=== PATIENT | male | born 1975 | race African-American/Black ===

== ENCOUNTER 2017-12-14 01:28 | Inpatient (IN) | payer MEDICAID ==
[~2017-12-14] VITALS: Ht 193 cm; Wt 91.0 kg
[~2017-12-14 01:28] MED LIST: NORPTMEDS CO
[2017-12-14] MEDS ORDERED: SODIUM CHLORIDE 0.9% 1,000 ML IV ONE ×2 (01:45→04:30)
[2017-12-14] MEDS ORDERED: PROMETHAZINE HCL 25 MG/ML 1ML IV ONE (02:00)
[2017-12-14] MEDS ORDERED: ONDANSETRON HCL 4 MG/2 ML VIAL ONE (02:01)
[2017-12-14] MEDS ORDERED: LORazepam 2MG/ML-1ML VIAL ONE (02:08)
[2017-12-14 02:13] LABS: Basophils # (auto) 0 uL; Basophils % (auto) 0.2 % (0.0-2.0); Eosinophils # (auto) 0 uL; Hematocrit 51.3 % (41.0-53.0); Hemoglobin 17.1 g/dL (13.5-17.5); Lymphocytes # (auto) 1.1 uL; Lymphocytes % (auto) 7.3 % (10.0-50.0); Mean Corpuscular Hemoglobin 31.3 pg (28.0-32.0); Mean Corpuscular Hgb Conc. 33.4 g/dL (32.0-36.0); Mean Corpuscular Volume 93.8 fL (80.0-100.0); Monocytes # (auto) 1.2 uL; Monocytes % (auto) 8.3 % (0.0-12.0); Neutrophils # (auto) 12.1 uL; Neutrophils % (auto) 84.2 % (37.0-80.0); Nucleated Red Blood Cells % 0.1 %; Platelet Count (auto) 189 10^3/uL (140-450); Red Blood Cells 5.47 10^6/uL (4.5-5.90); Red Cell Distribution Width 15.2 % (11.8-14.3); White Blood Cell 14.3 10^3/uL (4.4-10.8)
[2017-12-14] MEDS ORDERED: LORazepam 2MG/ML-1ML VIAL IV ONE (02:15)
[2017-12-14] MEDS ORDERED: ONDANSETRON HCL 4 MG/2 ML VIAL IV ONE (02:15)
[2017-12-14] MEDS ORDERED: THIAMINE 100mg/ml INJ (200mg/2ml VIAL) ONE (02:26)
[2017-12-14] MEDS: THIAMINE INJ 100 MG, MULTIPLE VITAMIN 10 ML, FOLIC ACID 1 MG, MAGNESIUM SULF SDV 50% 8 ... IV SCH ×5 (02:33)
[2017-12-14 02:37] LABS: Alanine Aminotransferase 100 U/L (16-61); Albumin 4.5 g/dL (3.4-5.0); Anion Gap 22 (5-15); Aspartate Aminotransferase 86 U/L (15-37); BUN/Creatinine Ratio 4.5; Blood Alcohol < 3.0 mg/dL (0-5); Blood Urea Nitrogen 26 mg/dL (7-18); Calcium 10.6 mg/dL (8.5-10.1); Carbon Dioxide 36 mmol/L (21-32); Chloride 74 mmol/L (98-107); GFR African American 14 mL/min; GFR Non-African American 12 mL/min; Glucose 167 mg/dL (74-106); Potassium 3.1 mmol/L (3.5-5.1); Sodium 132 mmol/L (136-145)
[2017-12-14 02:39] LABS: Amylase 130 U/L (25-115); Lipase 129 U/L (73-393)
[2017-12-14 02:40] LABS: Alkaline Phosphatase 89 U/L (45-117); Bilirubin, Total 4.9 mg/dL (0.2-1.0); Total Protein 9.6 g/dL (6.4-8.2)
[2017-12-14] MEDS ORDERED: FAMOTIDINE (10MG/ML) 2ML VL IV ONE (02:45)
[2017-12-14 03:55] LABS: Urine Bacteria NONE SEEN /hpf (None Seen); Urine Blood 3+ /uL (Negative); Urine Hyaline Cast MOD /lpf (0 - 2); Urine Mucus FEW (None Seen); Urine Specific Gravity 1.024 (1.001-1.035); Urine WBC 7 /hpf (0 - 3)
[2017-12-14] MEDS ORDERED: PROCHLORPERAZINE EDISYLATE 5 MG/ML 2ML VIAL IV ONE (04:00)
[2017-12-14] MEDS ORDERED: PROCHLORPERAZINE EDISYLATE 5 MG/ML 2ML VIAL ONE (04:01)
[2017-12-14 04:02] LABS: Amphetamine Screen, Urine NEGATIVE (NEGATIVE); Barbiturate Scree,Urine NEGATIVE (NEGATIVE); Benzodiazephine Screen, Urine NEGATIVE (NEGATIVE); Cannabinoid Screen, Urine NEGATIVE (NEGATIVE); Cocaine Screen, Urine NEGATIVE (NEGATIVE); Opiate Scree,Urine NEGATIVE (NEGATIVE); Phencyclidine Screen, Urine NEGATIVE (NEGATIVE)
[2017-12-14] MEDS ORDERED: HYDROmorphone HCL 2 MG/ML VL IV ONE (04:15)
[2017-12-14] MEDS ORDERED: MORPHINE SULF INJ 2 MG/ML SYRINGE 1ML IV PRN (05:15)
[2017-12-14] MEDS ORDERED: cefTRIAXone 1GM/10ml IVPUSH 10 ML IV SCH (06:00)
[2017-12-14] MEDS ORDERED: SODIUM CHLORIDE 0.9% 1,000 ML IV SCH (06:00)
[2017-12-14] MEDS ORDERED: PANTOPRAZOLE 40 MG/10 ML VIAL IV SCH (06:00)
[2017-12-14] MEDS: chlordiazePOXIDE HCL 25 MG CAP PO PRN ×2 (06:00→20:09)
[2017-12-14] MEDS: SOD CHL 0.9%/ KCL 20MEQ 1,000 ML IV SCH ×2 (11:26→20:15)
[2017-12-14 12:03] LABS: Phosphorus 1.3 mg/dL (2.5-4.90)
[2017-12-14 13:55] LABS: Protein, Urine 88.4 mg/dL (0.0-11.9)
[2017-12-14 17:00] VITALS: BP 114/75
[2017-12-14] MEDS: ONDANSETRON HCL 4 MG/2 ML VIAL IV PRN (20:09)
[2017-12-14 22:00] VITALS: BP 117/60
[2017-12-14] MEDS: PANTOPRAZOLE 40 MG TAB PO SCH (23:31)
[2017-12-15 05:00] VITALS: BP 121/69
[2017-12-15] MEDS: SOD CHL 0.9%/ KCL 20MEQ 1,000 ML IV SCH ×2 (05:15→12:15)
[2017-12-15] MEDS: ONDANSETRON HCL 4 MG/2 ML VIAL IV PRN (05:16)
[2017-12-15 06:40] LABS: Basophils # (auto) 0 uL; Basophils % (auto) 0.1 % (0.0-2.0); Eosinophils # (auto) 0.1 uL; Eosinophils % (auto) 0.8 % (0.0-7.0); Hematocrit 35.7 % (41.0-53.0); Hemoglobin 12.4 g/dL (13.5-17.5); Lymphocytes # (auto) 1.6 uL; Lymphocytes % (auto) 21.2 % (10.0-50.0); Mean Corpuscular Hemoglobin 33.1 pg (28.0-32.0); Mean Corpuscular Hgb Conc. 34.6 g/dL (32.0-36.0); Mean Corpuscular Volume 95.5 fL (80.0-100.0); Monocytes # (auto) 0.5 uL; Monocytes % (auto) 7.2 % (0.0-12.0); Neutrophils # (auto) 5.3 uL; Neutrophils % (auto) 70.7 % (37.0-80.0); Platelet Count (auto) 85 10^3/uL (140-450); Red Blood Cells 3.74 10^6/uL (4.5-5.90); White Blood Cell 7.5 10^3/uL (4.4-10.8)
[2017-12-15 07:06] LABS: Albumin 3.2 g/dL (3.4-5.0); BUN/Creatinine Ratio 12.2; Bilirubin, Total 2.7 mg/dL (0.2-1.0); Calcium 7.9 mg/dL (8.5-10.1); Magnesium 2.3 mg/dL (1.6-2.6); Phosphorus 2.3 mg/dL (2.5-4.90); Potassium 3.2 mmol/L (3.5-5.1); Total Protein 6.5 g/dL (6.4-8.2)
[2017-12-15] MEDS ORDERED: POTASSIUM CHL 20 Meq TABLET PO ONE (08:45)
[2017-12-15 09:00] VITALS: BP 118/71
[2017-12-15] MEDS ORDERED: PANT40T PO (09:05)
[2017-12-15] MEDS: PANTOPRAZOLE 40 MG TAB PO SCH (09:42)
[2017-12-15] MEDS: THIAMINE INJ 100 MG, MULTIPLE VITAMIN 10 ML, FOLIC ACID 1 MG, MAGNESIUM SULF SDV 50% 8 ... IV SCH ×5 (12:00)
[2017-12-15 12:58] VITALS: BP 118/71
[2017-12-15 13:00] VITALS: BP 110/68
[2017-12-15] MEDS ORDERED: POTASSIUM PHOSPHATE 44 MEQ in D5W 5% 250 ML IV ONE (13:30)
== END 2017-12-15 15:00 | disposition home or self-care (01) | DRG 280 ==
LOC: ER 01:28 → EDBD 01:28 → OVERFLOW 01:29 → CENTRAL 15:36
PROVIDERS: ADMIT Nurse Practitioner; ATTEND Internal Medicine
DX: K70.30 Alcoholic cirrhosis of liver without ascites (principal); K70.10 Alcoholic hepatitis without ascites; N17.0 Acute kidney failure with tubular necrosis; E87.3 Alkalosis; N18.3 Chronic kidney disease, stage 3 (moderate); K29.20 Alcoholic gastritis without bleeding; E83.52 Hypercalcemia; E83.39 Other disorders of phosphorus metabolism; K76.0 Fatty (change of) liver, not elsewhere classified; E87.1 Hypo-osmolality and hyponatremia; E87.5 Hyperkalemia; E87.6 Hypokalemia; E86.0 Dehydration; F10.239 Alcohol dependence with withdrawal, unspecified; F06.4 Anxiety disorder due to known physiological condition; Z82.0 Family history of epilepsy and other diseases of the nervous system; Z82.49 Family history of ischemic heart disease and other diseases of the circulatory system; Z83.3 Family history of diabetes mellitus
CPT/HCPCS: 36415; 70450; 74176; 76775; 80053; 80307; 80320; 81001; 82150; 82550; 82570; 82962; 83036; 83690; 83735; 83970; 84100; 84156; 84300; 85025; 86160; 93005; 94761; 96365; 96375; C9113; J0696; J2405; J3490; J7060

== ENCOUNTER 2018-10-26 09:20 | Inpatient (IN) | payer MEDICAID | END 2018-10-28 17:00 | disposition home or self-care (01) | LOC: ER 09:20 → TELE 09:21 → TELE-WESTW 20:26 | DX: R10.9 Unspecified abdominal pain (principal); N17.9 Acute kidney failure, unspecified; N18.9 Chronic kidney disease, unspecified; E86.0 Dehydration; E87.6 Hypokalemia; F10.20 Alcohol dependence, uncomplicated ==

== ENCOUNTER 2019-12-15 10:59 | Emergency (ER) | payer MEDICAID ==
[~2019-12-15] VITALS: Ht 193 cm; Wt 102.1 kg
[2019-12-15 13:14] LABS: Basophils # (auto) 0 10 ^3/uL (0-0.2); Basophils % (auto) 0.4 % (0.0-2.0); Eosinophils # (auto) 0 10 ^3/uL (0-0.8); Hemoglobin 16.7 g/dL (13.5-17.5); Lymphocytes # (auto) 1.2 10 ^3/uL (0.4-5.4); Lymphocytes % (auto) 15.7 % (10.0-50.0); Mean Corpuscular Hemoglobin 31.7 pg (28.0-32.0); Mean Corpuscular Hgb Conc. 33.5 g/dL (32.0-36.0); Mean Corpuscular Volume 94.8 fL (80.0-100.0); Monocytes # (auto) 0.8 10 ^3/uL (0-1.3); Monocytes % (auto) 10.4 % (0.0-12.0); Neutrophils # (auto) 5.7 10 ^3/uL (1.6-8.6); Neutrophils % (auto) 73.5 % (37.0-80.0); Platelet Count (auto) 218 10^3/uL (140-450); Red Blood Cells 5.27 10^6/uL (4.5-5.90); Red Cell Distribution Width 13.6 % (11.8-14.3); White Blood Cell 7.7 10^3/uL (4.4-10.8)
[2019-12-15 13:39] LABS: Albumin 4.6 g/dL (3.4-5.0); Calcium 9.9 mg/dL (8.5-10.1); Potassium 4.8 mmol/L (3.5-5.1)
[2019-12-15 13:44] LABS: BUN/Creatinine Ratio 11.5; Bilirubin, Total 3.1 mg/dL (0.2-1.0); Total Protein 9.7 g/dL (6.4-8.2)
[2019-12-15] MEDS ORDERED: SODIUM CHLORIDE 0.9% 1,000 ML IVB ONE (15:09)
[2019-12-15] MEDS ORDERED: MORPHINE SULFATE 4 MG/ML SYR/VIAL IV ONE (15:15)
[2019-12-15] MEDS ORDERED: METOCLOPRAMIDE HCL 5MG/ml INJ 2ml VIAL IV ONE (15:15)
[2019-12-15] MEDS ORDERED: ALUM & MAG HYDROX-SIMETH LIQ(MAALOX) 30 ML PO ONE (15:15)
[2019-12-15] MEDS ORDERED: FAMOTIDINE 20 MG TAB PO ONE (15:15)
[2019-12-15] MEDS ORDERED: DONNATAL 5ml ORAL Elix (BELLADONNA ALK-PHENOBARB) PO ONE (15:15)
[2019-12-15 15:29] LABS: Magnesium 2.4 mg/dL (1.6-2.6)
[2019-12-15 17:33] VITALS: BP 141/90
== END 2019-12-15 17:37 | disposition home or self-care (01) ==
LOC: ER 10:59 → EDBD 10:59 → ER 17:37
DX: K29.20 Alcoholic gastritis without bleeding (principal); E86.0 Dehydration; F10.10 Alcohol abuse, uncomplicated; E80.6 Other disorders of bilirubin metabolism; K40.20 Bilateral inguinal hernia, without obstruction or gangrene, not specified as recurrent; I10 Essential (primary) hypertension; Y90.9 Presence of alcohol in blood, level not specified
CPT/HCPCS: 36415; 74176; 80053; 83690; 83735; 85025; 93005; 96361; 96374; 96375; 99285; J2270; J2765; J7030

== ENCOUNTER 2020-05-22 11:12 | Emergency (ER) | payer MEDICAID ==
[~2020-05-22] VITALS: Ht 190.5 cm; Wt 102.1 kg
[2020-05-22] MEDS ORDERED: SODIUM CHLORIDE 0.9% 1,000 ML IV ONE ×2 (11:30)
[2020-05-22 11:42] LABS: Basophils # (auto) 0 10 ^3/uL (0-0.2); Basophils % (auto) 0.3 % (0.0-2.0); Eosinophils # (auto) 0 10 ^3/uL (0-0.8); Hematocrit 49.4 % (41.0-53.0); Lymphocytes # (auto) 0.9 10 ^3/uL (0.4-5.4); Lymphocytes % (auto) 8.8 % (10.0-50.0); Mean Corpuscular Hemoglobin 30.9 pg (28.0-32.0); Mean Corpuscular Hgb Conc. 34.4 g/dL (32.0-36.0); Mean Corpuscular Volume 89.9 fL (80.0-100.0); Monocytes # (auto) 0.9 10 ^3/uL (0-1.3); Monocytes % (auto) 8.9 % (0.0-12.0); Neutrophils # (auto) 8.2 10 ^3/uL (1.6-8.6); Platelet Count (auto) 172 10^3/uL (140-450); Red Blood Cells 5.49 10^6/uL (4.5-5.90); Red Cell Distribution Width 15.4 % (11.8-14.3); White Blood Cell 9.9 10^3/uL (4.4-10.8)
[2020-05-22 11:58] LABS: Albumin 4.8 g/dL (3.4-5.0); Anion Gap 19 (5-15); Blood Urea Nitrogen 41 mg/dL (7-18); Calcium 9.1 mg/dL (8.5-10.1); Carbon Dioxide 33 mmol/L (21-32); Chloride 83 mmol/L (98-107); Glucose 91 mg/dL (74-106); Lipase 98 U/L (73-393); Potassium 3.5 mmol/L (3.5-5.1); Sodium 135 mmol/L (136-145)
[2020-05-22 12:04] LABS: Alanine Aminotransferase 65 U/L (16-61); Alkaline Phosphatase 75 U/L (45-117); Aspartate Aminotransferase 66 U/L (15-37); BUN/Creatinine Ratio 15.1; Bilirubin, Total 3.1 mg/dL (0.2-1.0); GFR African American 33 mL/min; GFR Non-African American 28 mL/min; Total Protein 9.9 g/dL (6.4-8.2)
[2020-05-22] MEDS ORDERED: PROMETHAZINE HCL 25 MG/ML 1ML IV ONE (12:30)
[2020-05-22] MEDS ORDERED: THIAMINE 100mg/ml INJ (200mg/2ml VIAL) IV ONE (12:30)
[2020-05-22] MEDS ORDERED: KETOROLAC TROMETH 30 MG/ML 1ML VIAL IV ONE (14:30)
[2020-05-22 16:00] VITALS: BP 146/89
[2020-05-22] MEDS ORDERED: ONDANSETRON HCL 4 MG/2 ML VIAL IV ONE (16:45)
== END 2020-05-22 17:05 | disposition home or self-care (01) ==
LOC: ER 11:12 → EDBD 11:12 → ER 17:05
DX: K52.9 Noninfective gastroenteritis and colitis, unspecified (principal); F10.129 Alcohol abuse with intoxication, unspecified; F32.9 Major depressive disorder, single episode, unspecified; Y90.8 Blood alcohol level of 240 mg/100 ml or more
CPT/HCPCS: 36415; 71045; 74176; 80053; 80320; 83690; 84484; 85025; 93005; 96361; 96374; 96375; 99285; J1885; J2405; J2550; J3411; J7030